=== PATIENT | female | born 1950 ===

== ENCOUNTER → 2016-11-21 | Outpatient (CLI) | payer OTHER ==
--- NOTE | 2016-11-21 14:42 | MAMMOGRAPHY REPORT ---
BILATERAL DIGITAL SCREENING MAMMOGRAM WITH CAD: 11/21/2016 CLINICAL HISTORY: Routine screening. Patient has no complaints. TECHNIQUE: Current study was also evaluated with a Computer Aided Detection (CAD) system. Bilatera l CC and MLO views were obtained. COMPARISON: Comparison is made to exams dated: 10/28/2015 mammogram, 04/28/2015 mammogram, 04/18/2015 mammogram, 09/07/2013 mammogram - [facility], and 08/29/2009 mammogram. BREAST COMPOSITION: There are scattered areas of fibroglandular density in both breasts. FINDINGS: No suspicious masses, calcifications, or areas of architectural distortion are noted in e ither breast. There has been no significant interval change compared to prior exams. Bilateral matilde gn-appearing calcifications are not significantly changed. A circular marker velasquez a mole on the le ft medial breast. IMPRESSION: ACR BI-RADS CATEGORY 2: BENIGN There is no mammographic evidence of malignancy. A 1 year screening mammogram is recommended. The p atient will receive written notification of the results. Approximately 10% of breast cancers are not detected with mammography. A negative mammographic repor t should not delay biopsy if a clinically suggestive mass is present. Aniyah Lopez M.D. /:11/21/2016 08:42:39 Mobile Nurse: Kia LUND(R)(M), [facility] letter sent: Normal 1/2 BI-RADS Code: ACR BI-RADS Category 2: Benign
== END | disposition home or self-care (01) ==
LOC: C.MAMM 07:50
PROVIDERS: ATTEND Physician Assistant
DX: Z12.31 Encounter for screening mammogram for malignant neoplasm of breast (principal)

== ENCOUNTER → 2018-03-10 | Outpatient (CLI) | payer OTHER ==
--- NOTE | 2018-03-11 07:31 | MAMMOGRAPHY REPORT ---
BILATERAL DIGITAL SCREENING MAMMOGRAM TOMOSYNTHESIS WITH CAD: 03/10/2018 CLINICAL HISTORY: Routine screening. Patient has no complaints. TECHNIQUE: The study was acquired using full field digital technology and interpreted from soft copy. Breast tomosynthesis in addition to standard 2D mammography was performed. Current study was also ev aluated with a Computer Aided Detection (CAD) system. COMPARISON: Comparison is made to exams dated: 11/21/2016 mammogram, 10/28/2015 mammogram, 04/28/2015 ma mmogram, 04/18/2015 mammogram, 09/07/2013 mammogram - [facility], and 08/29/2009 mammo gram. BREAST COMPOSITION: There are scattered areas of fibroglandular density in both breasts. FINDINGS: There is a newly visualized 7 mm focal asymmetry versus mass in the upper outer middle one third of the left breast, for which additional targeted ultrasound and possible additional mammograph ic views are recommended. There are scattered benign-appearing left breast calcifications. No other suspicious mass, architectu ral distortion or cluster of microcalcifications is seen. IMPRESSION: ACR BI-RADS CATEGORY 0: INCOMPLETE EVALUATION: NEED ADDITIONAL IMAGING EVALUATION The newly visualized 7 mm focal asymmetry versus mass in the upper outer left breast needs additional evaluation. The patient will be called to schedule an appointment. Some breast cancers are not detected with mammography. A negative mammographic report should not lotus y biopsy if a clinically suggestive mass is present. Martha Lobo M.D. ay/:03/10/2018 16:39:48 Field Sampling Technician: RT Suman(Shavon)(M), [facility] letter sent: Addl Imaging 0 BI-RADS Code: ACR BI-RADS Category 0: Incomplete Evaluation: Need Additional Imaging Evaluation
== END | disposition home or self-care (01) ==
LOC: C.MAMM 10:28
PROVIDERS: ATTEND Physician Assistant
DX: Z12.31 Encounter for screening mammogram for malignant neoplasm of breast (principal); N64.89 Other specified disorders of breast

== ENCOUNTER → 2018-03-19 | Outpatient (CLI) | payer OTHER ==
--- NOTE | 2018-03-20 14:57 | MAMMOGRAPHY REPORT ---
ULTRASOUND OF LEFT BREAST: 03/19/2018 CLINICAL HISTORY: 67-year-old woman called back from screening mammography for a 7 mm focal asymmetry versus mass in the upper outer middle one third of the left breast. COMPARISON: Comparison is made to exams dated: 03/10/2018 mammogram, 11/21/2016 mammogram, 10/28/2015 ma mmogram, 04/28/2015 mammogram, 09/07/2013 mammogram - [facility], and 08/29/2009 mammo gram. FINDINGS: Targeted ultrasound was performed in the left breast upper outer quadrant. In the 230 axis , 5 cm from the nipple, there is an oval parallel circumscribed hypoechoic mass without evidence of p osterior acoustic enhancement or posterior shadowing. No internal vascularity is documented. This m ass measures 3.8 x 3.0 x 7.1 mm, and likely corresponds with the mammographic finding. It is indeter minate given could represent a cyst or solid mass and definitive characterization with ultrasound-guanako ded cyst aspiration versus core needle biopsy is recommended. IMPRESSION: ACR BI-RADS CATEGORY 4: SUSPICIOUS 1. There is a 7 mm oval circumscribed hypoechoic solid versus cystic mass in the 230 left breast, 5 cm from the nipple identified on ultrasound, thought to correspond with the mammographic finding. Ul trasound-guided cyst aspiration versus core needle biopsy is recommended for definitive characterizat ion. These results and recommendations were discussed with the patient at the time of the exam. She tenta tively scheduled a left breast biopsy prior to leaving the department. Martha Lobo M.D. ay/:03/19/2018 15:23:49 Trash Collector: RT Dinora(Shavon)(M), [facility] letter sent: Abnormal 4/5 BI-RADS Code: ACR BI-RADS Category 4: Suspicious
== END | disposition home or self-care (01) ==
LOC: C.MAMM 12:42
PROVIDERS: ATTEND Physician Assistant
DX: R92.8 Other abnormal and inconclusive findings on diagnostic imaging of breast (principal); N63.20 Unspecified lump in the left breast, unspecified quadrant

== ENCOUNTER → 2018-03-26 | Outpatient (CLI) | payer OTHER ==
--- NOTE | 2018-03-26 09:16 | Discharge Instructions ---
Discharge Instructions Procedure Procedure Date: Mar 26, 2018. Reason for visit: Left breast cystic appearing mass Discharge Discharge Date: Mar 26, 2018. Discharge Diagnosis: post left breast ultrasound guided cyst aspiration Instructions Activity Recommendations: Additional Limitations Return to School/Work: no limitations Recommended Home Diet: No Limitations Provider Instructions: ACTIVITY RECOMMENDATIONS: * Rest today. * Resume regular activity in one day. MEDICATIONS: * May take Tylenol or Ibuprofen as needed for pain. DIET: * Resume previous diet. SPECIAL CARE INSTRUCTIONS: Call your doctor if: * Temperature above 101 degrees F. * Pain not relieved by pain medicine ordered. * Increased drainage or redness from incision. * Increasing chest pain or shortness of breath. * Notify your doctor with any questions or concerns. * If you have specific questions or concerns for Breast Radiology, please call us at during normal business hours or Dr. Lobo after hours at . FOLLOW UP VISIT: Follow-up with Referring Physician as scheduled. [facility] [place] Recommendations: Call your doctor if: * Temperature above 101 degrees * Pain not relieved by pain medicine ordered * There is increased drainage or redness from any incision * You have any unanswered questions or concerns. Your Doctors Instructions noted above were prepared by provider Martha Lobo. Patient Signature Section: Patient Instructions Signature Page [facility] Patient (or Guardian) Signature/Date: I have read and understand the instructions given to me by my caregivers. Caregiver/RN/Doctor Signature/Date: The above-named patient and/or guardian has received patient instructions on this date. + Original Patient Signature Page (only) stays with chart. Please make copy for patient.
--- NOTE | 2018-03-26 13:38 | MAMMOGRAPHY REPORT ---
ASPIRATION LEFT BREAST: 03/26/2018 CLINICAL HISTORY: 67-year-old woman presents for attempted ultrasound-guided cyst aspiration versus c ore biopsy of the cystic appearing 7 mm mass in the 2:30 left breast, thought to correspond with the mammographic focal asymmetry/mass. COMPARISON: Comparison is made to exams dated: 03/19/2018 ultrasound, 03/10/2018 mammogram, 11/21/2016 ma mmogram, 10/28/2015 mammogram, 04/18/2015 mammogram, and 09/07/2013 mammogram - [facility] nter. PATIENT CONSENT: After explaining the risks, benefits and alternatives of the procedure to the patien t, informed consent was obtained verbally and in writing. Specific risks include: bleeding, infection and puncture of adjacent structure. A time out was preformed. PROCEDURE DESCRIPTION: The oval, 7 mm hypoechoic cystic appearing mass in the 2:30 left breast was id entified and targeted for cyst aspiration. 1% buffered lidocaine without epinephrine was administered subcutaneously and intraparenchymally as local anesthesia. A 22 gauge needle was advanced to the sit e of the mass. Aspiration was preformed and the mass resolved completely, confirming cystic nature. The post-aspiration ultrasound image was obtained to document resolution of the sonographic mass afte r aspiration. Less than 1 cc of blood-tinged clear yellowish fluid was rinsed in CytoLyt and sent to the pathology department for cytologic analysis. Postprocedure left CC and MLO 2D and tomosynthesis images were obtained. These images demonstrate co mplete resolution of the mammographic mass versus focal asymmetry in question in the upper outer midd le one third of the left breast, confirming mammographicsonographic correlation of this benign cyst. Therefore recommend return to annual screening mammography schedule. IMPRESSION: ASPIRATION Status post aspiration to resolution of a cystic mass in the 2:30 left breast, which corresponded wit h the mammographic mass/focal asymmetry in the left upper outer quadrant. As long as the cytology re sults are benign, would recommend return to annual screening mammography schedule, due in February 2019. Martha Lobo M.D. ay/:03/26/2018 09:31:13 Attending Technologist: RT Chano(Shavon)(M), [facility] Motor Vehicle Light Assembler: Martha Lobo, [facility]
--- NOTE | 2018-03-26 13:38 | MAMMOGRAPHY REPORT ---
UNILATERAL LEFT DIGITAL DIAGNOSTIC MAMMOGRAM TOMOSYNTHESIS: 03/26/2018 CLINICAL HISTORY: 67-year-old woman with a probable cyst in the 230 left breast, thought to correlate with a focal asymmetry versus mass in the left upper outer quadrant. She presents for ultrasound-guanako ded cyst aspiration to ensure resolution and cystic nature. Please refer to the report from left breast ultrasound-guided cyst aspiration performed at the same t zain for full detail. IMPRESSION: Please refer to the report from left breast ultrasound-guided cyst aspiration performed at the same t zain for full detail. Some breast cancers are not detected with mammography. A negative mammographic report should not lotus y biopsy if a clinically suggestive mass is present. Martha Lobo M.D. ay/:03/26/2018 09:15:30 Senior Analytic Consultant: RT Chano(Shavon)(M), [facility] BI-RADS Code: n/a
== END | disposition home or self-care (01) ==
LOC: C.MAMM 08:27
PROVIDERS: ATTEND Physician Assistant
DX: N60.02 Solitary cyst of left breast (principal)